=== PATIENT | female | born 1970 | race Caucasian/White ===

== ENCOUNTER → 2016-05-01 | Outpatient (CLI) | payer BC ==
--- NOTE | 2016-05-01 11:25 | MA ---
Screening Digital Mammogram Clinical Indications: Routine screening. Technique: Standard cephalocaudal and mediolateral oblique projections are obtained. This examinati on was processed by the [employer] computer aided detection system. Comparison: None available Breast density: C; The breast tissue is heterogeneously dense, which could obscure detection of small masses. Findings: CAD was reviewed. Architectural distortion versus overlapping Santino's ligaments in the fabian tral right breast seen on the CC view. If real, my suspicion is that this is in the upper right breas t on the oblique lateral view. The remainder the right and left breast are unremarkable. Impression: Possible architectural distortion right breast. BI-RADS 0: Needs additional imaging evaluation, right breast.. Recommendation: Spot compression views and true lateral view. If persistent, proceed to ultrasound a t the discretion of the interpreting radiologist for further localization and characterization purpos es. Please fax a written or electronic order for a right breast diagnostic mammogram and ultrasound to .. [facility] will send a result letter to the patient. Negative mammography should not preclude additional workup of a clinically suspicious finding. The patient's information is entered into a reminder system with a target due date for her next mammo gram.
== END ==
LOC: BMCIMAGING 10:18
DX: Z12.31 Encounter for screening mammogram for malignant neoplasm of breast (principal)
CPT/HCPCS: G0202

== ENCOUNTER → 2016-05-05 | Outpatient (CLI) | payer BC ==
--- NOTE | 2016-05-05 13:22 | MA ---
Right Unilateral Digital Diagnostic Mammogram History: Architectural distortion in the right breast. Comparison: Screening mammograms May 01, 2016, and August 22, 2011, (previous screening mammograms from 2011 became available in the interval since the previous screening mammogram). Technique: Spot compression CC and mediolateral oblique and true lateral views. Findings: Additional views demonstrate no residual dominant density or architectural distortion. All owing for variation in technique, breast parenchyma appears stable on today's study compared to mammo grams from 2012. Impression: BI-RADS 1: Negative. Recommendations: Routine mammogram in one year. Findings and recommendations were given to the lynne t at the time of the study. [facility] will send a result letter to the patient.
== END ==
LOC: BMCIMAGING 12:19
PROVIDERS: ATTEND Radiology Diagnostic Radiology
DX: R92.8 Other abnormal and inconclusive findings on diagnostic imaging of breast (principal)
CPT/HCPCS: G0206

== ENCOUNTER → 2017-05-03 | Outpatient (CLI) | payer BC | LOC: BMCIMAGING 07:34 | PROVIDERS: ATTEND Internal Medicine | DX: Z12.31 Encounter for screening mammogram for malignant neoplasm of breast (principal) ==